=== PATIENT | female | born 1975 | race Caucasian/White ===

== ENCOUNTER 2017-06-07 12:15 | Day surgery (SDC) | payer MEDICAID ==
[2017-05-30 08:46] VITALS: BMI 24.4
[2017-06-07] MEDS ORDERED: Ciprofloxacin 400mg/200ml D5W 400 MG/200 ML BAG IVPB ONE (13:54)
[2017-06-07] MEDS ORDERED: Midazolam 2 MG/2 ML VIAL ONE (13:56)
[2017-06-07] MEDS ORDERED: Propofol 10 mg/ml Inj (20 ML) ONE (13:56)
[2017-06-08 11:04] VITALS: BP 114/70; PULSE 72; RESP 18; O2SAT 99
[2017-06-08 11:07] VITALS: TEMP 97.8
--- NOTE | 2017-06-12 22:22 | OP ---
PROCEDURE DATE: PREOPERATIVE DIAGNOSIS: Difficulty emptying the bladder with urethral stricture. POSTOPERATIVE DIAGNOSIS: Difficulty emptying the bladder with urethral stricture. PROCEDURE: Cystodilatation. DESCRIPTION OF PROCEDURE: While the patient in lithotomy position and after starting anesthesia, genitalia prepped and draped in sterile fashion. The patient given Cipro IV, #22 scope inserted, it showed some tightness of the urethra with some angulation. The bladder itself revealed no tumor, no stone. Dome, lateral wall within normal limits. Some pseudopolyp around the bladder neck. The trigone normal. Clear efflux from the right and the same from the left. No need to do retrograde. The urethra inspected in addition to the polyp, it is tight. After removing the scope and filling the bladder, the urethra dilated up to 28. The patient tolerated the procedure well. After emptying the bladder, she was transferred to the recovery room in stable condition. Dianne Pope MD
== END 2017-06-07 16:30 | disposition home or self-care (01) ==
LOC: C.SDS 12:15
PROVIDERS: ATTEND Specialist
DX: N35.9 Urethral stricture, unspecified (principal); D41.4 Neoplasm of uncertain behavior of bladder; R35.0 Frequency of micturition; R39.15 Urgency of urination
CPT/HCPCS: 52281; J0744

== ENCOUNTER 2018-05-09 10:22 | Outpatient (CLI) | payer MEDICAID | END 2018-05-09 10:23 | disposition home or self-care (01) | LOC: C.RADIC 10:22 ==